=== PATIENT | female | born 1930 | race Caucasian/White ===

== ENCOUNTER 2016-12-26 21:28 | Observation (INO) | payer OTHER ==
--- NOTE | 2016-12-26 21:36 | PDOC ---
History of Present Illness - General History Source: Patient, Old Records Exam Limitations: No Limitations - History of Present Illness Initial Comments: The patient is a 86 year old female with a significant past medical history of chronic back problems, heart failure, hypothyroidism, HTN, osteoporosis, who presents to the emergency department today for further evaluation of shortness of breath for 8 hours. The patient states that she had pneumonia in the winter of 2014 and that her symptoms feel similar. She reports associated fever, constipation, and difficulty seeing straight but denies cough. She states that she did not attempt to treat symptoms at home. She denies ever having had an ND. PAST MEDICAL HISTORY: Chronic back problems, heart failure, hypothyroidism, HTN , osteoporosis PAST SURGICAL HISTORY: No significant history reported FAMILY HISTORY: No pertinent history reported SOCIAL HISTORY: Former smoker (quit 1975) MEDICATIONS: Reviewed ALLERGIES: Antibiotic cream <Boo Rodgers - Last Filed: 12/26/16 21:50> - General History Source: Patient, Family Exam Limitations: No Limitations - History of Present Illness Initial Comments: 12/26/16 22:41 A portion of this note was documented by scribe services under my direction. I have reviewed the details of the note, within reason, and agree with the documentation. The case summary and management plan written by me. Assessment and plan: This is an 86-year-old female who comes in complaining of fever and not feeling well. Patient thought she had pneumonia however as it turns out patient has a urinary tract infection. Patient has an elevated white count with left shift. And low-grade fever here in the emergency room.. Patient was given a gram of ceftriaxone Patient admitted to an inpatient bed for additional treatment and IV antibiotics. <Aziza Osborne I - Last Filed: 12/26/16 23:17> - General Chief Complaint: Shortness of Breath Stated Complaint: I THINK I HAVE PNEUMONIA Time Seen by Provider: 12/26/16 21:34 Past History <Boo Rodgers - Last Filed: 12/26/16 21:50> - Past Medical History Disorders: Yes (INCONTINENCE) HTN: Yes Thyroid Disease: Yes (HYPOTHYROID) - Psycho/Social/Smoking Cessation Hx Anxiety: No Suicidal Ideation: No Smoking Status: No Smoking History: Never smoked Have you smoked in the past 12 months: No Number of Cigarettes Smoked Daily: 0 If you are a former smoker, when did you quit?: 1975 Hx Alcohol Use: No Drug/Substance Use Hx: No Substance Use Type: None <Aziza Osborne I - Last Filed: 12/26/16 23:17> - Past Medical History Allergies/Adverse Reactions: Allergies Allergy/AdvReac Type Severity Reaction Status Date / Time No Known Drug Allergies Allergy Verified 12/26/16 22:46 ANTIBIOTIC CREAM Allergy Uncoded 02/04/16 17:37 Home Medications: Ambulatory Orders Aspirin [ASA -] 81 mg PO DAILY 12/26/16 Atorvastatin Ca [Lipitor] 10 mg PO HS 12/26/16 Cetirizine HCl [Zyrtec -] 20 mg PO HS 12/26/16 Cyclosporine [Restasis] 1 each OP BID 12/26/16 Levothyroxine Sodium [Synthroid] 100 mcg PO DAILY 12/26/16 Trospium Chloride [Trospium Chloride ER] 20 mg PO BID 12/26/16 Valsartan 40 mg PO DAILY 12/26/16 Review of Systems - Review of Systems Able to Perform ROS?: Yes Comments:: General: (+) Fevers. No chills, no weakness, no weight loss HEENT: (+) Difficulty seeing straight. No sore throat, No ear pain CardioVascular: (+) shortness of breath. No chest pain Respiratory:No cough, or wheezing. Gastrointestinal: no nausea, vomiting, diarrhea or constipation, No rectal bleeding Genitourinary: No dysuria, hematuria, or frequency Musculoskeletal: No joint or muscle pain or swelling Neurologic: No headache, vertigo, dizziness or loss of consciousness Psychiatric: nor depression Skin: No rashes or easy bruising Endocrine: no increased thirst or abnormal weight change Allergic: no skin or latex allergy All other systems reviewed and normal <Boo Rodgers - Last Filed: 12/26/16 21:50> *Physical Exam - Physical Exam Comments: General: Well-nourished well-developed individual, no acute distress HEENT: Throat: Normal, tonsils normal, no erythema or exudate Neck: Supple, no meningeal signs, no lymphadenopathy Eyes::Pupils equal reactive and round, extraocular motion intact Chest: Nontender to palpation Cardiac: S1-S2 normal, regular rate and rhythm, no murmurs rubs or gallops Respiratory: Lungs clear to auscultation bilateral Abdomen: Soft, nondistended, normal bowel sounds, nontender to palpation diffusely Extremities: Warm, dry, no cyanosis, clubbing, or edema Skin: No rashes Neuro: Alert and oriented x3, nonfocal exam, grossly intact, normal gait Psych: Normal mood and affect <Boo Rodgers - Last Filed: 12/26/16 21:50> Heart Score/ECG Review - ECG Impressions Comment:: Normal sinus rhythm. Low voltage QRS. Borderline ECG <Boo Rodgers - Last Filed: 12/26/16 21:50> ED Treatment Course - LABORATORY CBC & Chemistry Diagram: 12/26/16 22:10 12/26/16 22:10 <Aziza Osborne I - Last Filed: 12/26/16 23:17> *DC/Admit/Observation/Transfer - Attestations Scribe Attestion: Documentation prepared by Boo Rodgers, acting as medical biller coder for Aziza Osborne MD. <Boo Rodgers - Last Filed: 12/26/16 21:50> - Discharge Dispostion Admit: Yes <Aziza Osborne I - Last Filed: 12/26/16 23:17> Diagnosis at time of Disposition: Cystitis - Discharge Dispostion Condition at time of disposition: Stable
[2016-12-26 22:20] LABS: URINE APPEARANCE Cloudy; URINE BILIRUBIN 1+ (NEGATIVE); URINE BLOOD Trace-intact (NEGATIVE); URINE GLUCOSE (UA) Negative (NEGATIVE); URINE KETONE Negative (NEGATIVE); URINE NITRITE Negative (NEGATIVE); URINE PROTEIN Trace (NEGATIVE); URINE UROBILINOGEN 0.2 E.U/dl (0.2-1.0)
[2016-12-26 22:23] LABS: MCH 31.1 pg (25.7-33.7); MEAN CELL VOLUME 91.5 fl (80-96); MEAN PLT VOLUME 8.2 fl (7.5-11.1); PLATELET COUNT 216 K/MM3 (134-434); RDW 12.3 % (11.6-15.6); WHITE BLOOD COUNT 16.3 K/mm3 (4.0-10.8)
[2016-12-26 22:30] LABS: URINE COLOR YELLOW; URINE LEUK ESTERASE 3+ (NEGATIVE); URINE WBC 20-30 (3-5)
[2016-12-26 22:31] LABS: URINE BACTERIA FEW /hpf (NEGATIVE)
[2016-12-26] MEDS ORDERED: CEFTRIAXONE 1 GM in DEXTROSE 5%-WATER - 50 ML IVPB ONE (22:35)
[2016-12-26] MEDS ORDERED: cefTRIAXone SODIUM 1 GM VIAL ONE (22:38)
[2016-12-26 22:52] LABS: TROPONIN I (DFP) < 0.03 ng/ml (0.03-0.50)
[2016-12-26 22:59] LABS: PLATELET ESTIMATE ADEQUATE (NORMAL)
[2016-12-26 23:04] LABS: ALBUMIN 3.5 g/dl (3.5-5.0); ALK PHOS 167 U/L (32-92); ANION GAP 9 (8-16); BILIRUBIN,TOTAL 0.9 mg/dl (0.2-1.0); CALCIUM 8.7 mg/dl (8.4-10.2); CO2 25 mmol/L (22-28); CREATININE 0.8 mg/dl (0.6-1.3); GLUCOSE,RANDOM 178 mg/dl (74-106); TOT PROT 6.1 g/dl (6.4-8.3)
[2016-12-26 23:05] LABS: CPK(DFH) 72 IU/L (26-140)
--- NOTE | 2016-12-26 23:25 | HP ---
CHIEF COMPLAINT: SOB, Fever, Constipation PCP: Doctor not on staff HISTORY OF PRESENT ILLNESS: This is a 86 y/o woman with a past medical history Hypertension, Hypothyroidism , OA, Urinary Incontinence. Who present to the emergency department with SOB x today, fever and constipation. Patient reports having a small BM today after self dis-impaction. Patient reports having RMQ pain intermittently for a while. Patient denies chills, cough, CP, N/V/D. ER course was notable for: (1) WBC 16.3 (2) Transaminitis > 10xNL (3) UA- +3 leukocyte esterase, 20-30 WBCs Recent Travel: None PAST MEDICAL HISTORY: See HPI PAST SURGICAL HISTORY: See HPI Social History: Smoking: Never Alcohol: Occasionally Drugs: None Lives at home with spouse, independent Family History: Non- Contributory Allergies No Known Drug Allergies Allergy (Verified 12/26/16 22:46) ANTIBIOTIC CREAM Allergy (Uncoded 02/04/16 17:37) HOME MEDICATIONS: Home Medications Medication Instructions Recorded Aspirin [ASA -] 81 mg PO DAILY 12/26/16 Atorvastatin Ca [Lipitor] 10 mg PO HS 12/26/16 Cetirizine HCl [Zyrtec -] 20 mg PO HS 12/26/16 Cyclosporine [Restasis] 1 each OP BID 12/26/16 Levothyroxine Sodium [Synthroid] 100 mcg PO DAILY 12/26/16 Trospium Chloride [Trospium 20 mg PO BID 12/26/16 Chloride ER] Valsartan 40 mg PO DAILY 12/26/16 REVIEW OF SYSTEMS CONSTITUTIONAL: fever Absent: chills, diaphoresis, generalized weakness, malaise, loss of appetite, weight change HEENT: Absent: rhinorrhea, nasal congestion, throat pain, throat swelling, difficulty swallowing, mouth swelling, ear pain, eye pain, visual changes CARDIOVASCULAR: Absent: chest pain, syncope, palpitations, irregular heart rate, lightheadedness , peripheral edema RESPIRATORY: shortness of breath Absent: cough, dyspnea with exertion, orthopnea, wheezing, stridor, hemoptysis GASTROINTESTINAL: RMQ pain, constipation Absent: abdominal distension, nausea, vomiting, diarrhea, melena, hematochezia GENITOURINARY: Absent: dysuria, frequency, urgency, hesitancy, hematuria, flank pain, genital pain MUSCULOSKELETAL: arthralgia Absent: myalgia, joint swelling, back pain, neck pain SKIN: Absent: rash, itching, pallor HEMATOLOGIC/IMMUNOLOGIC: Absent: easy bleeding, easy bruising, lymphadenopathy, frequent infections ENDOCRINE: Absent: unexplained weight gain, unexplained weight loss, heat intolerance, cold intolerance NEUROLOGIC: Absent: headache, focal weakness or paresthesias, dizziness, unsteady gait, seizure, mental status changes, bladder or bowel incontinence PSYCHIATRIC: Absent: anxiety, depression, suicidal or homicidal ideation, hallucinations. PHYSICAL EXAMINATION Vital Signs - 24 hr 12/26/16 22:20 Temperature 99.7 F H Pulse Rate 86 Respiratory 18 Rate Blood Pressure 153/89 O2 Sat by Pulse 97 Oximetry (%) GENERAL: Awake, alert, and oriented x2, in no acute distress. HEAD: Normal with no signs of trauma. EYES: Pupils equal, round and reactive to light, extraocular movements intact, sclera anicteric, conjunctiva clear. No lid lag. EARS, NOSE, THROAT: Ears normal, nares patent, oropharynx clear without exudates. Moist mucous membranes. NECK: Normal range of motion, supple without lymphadenopathy, JVD, or masses. LUNGS: Breath sounds equal, clear to auscultation bilaterally. No wheezes, and no crackles. No accessory muscle use. HEART: Regular rate and rhythm, normal S1 and S2 without murmur, rub or gallop. ABDOMEN: Soft, nontender, not distended, normoactive bowel sounds, no guarding, no rebound, no masses. No hepatomegaly or splenomegaly. MUSCULOSKELETAL: Normal range of motion at all joints. No bony deformities or tenderness. No CVA tenderness. UPPER EXTREMITIES: 2+ pulses, warm, well-perfused. No cyanosis. No clubbing. No peripheral edema. LOWER EXTREMITIES: 2+ pulses, warm, well-perfused. No calf tenderness. No peripheral edema. NEUROLOGICAL: Cranial nerves II-XII intact. Normal speech. Gait not observed. PSYCHIATRIC: Cooperative. Good eye contact. Appropriate mood and affect. SKIN: Warm, dry, normal turgor, no rashes or lesions noted, normal capillary refill. Laboratory Results - last 24 hr 12/26/16 12/26/16 12/26/16 22:10 22:10 22:10 WBC 16.3 H D RBC 4.05 Hgb 12.6 Hct 37.0 MCV 91.5 MCHC 34.0 RDW 12.3 Plt Count 216 MPV 8.2 Neutrophils % 91.0 H D Lymphocytes % 3.0 L D Band Neutrophils 2.0 Myelocytes 1 Differential Comment Few large plts Platelet Estimate Adequate Sodium 134 L Potassium 3.9 Chloride 100 Carbon Dioxide 25 Anion Gap 9 BUN 15 D Creatinine 0.8 Creat Clearance w eGFR > 60 Random Glucose 178 H D Calcium 8.7 Total Bilirubin 0.9 D Alkaline Phosphatase 167 H D Creatine Kinase Troponin I Total Protein 6.1 L Albumin 3.5 Urine Color Yellow Urine Appearance Cloudy Urine pH 7.0 Ur Specific [place] 1.015 Urine Protein Trace Urine Glucose (UA) Negative Urine Ketones Negative Urine Blood Trace-intact Urine Nitrite Negative Urine Bilirubin 1+ H Urine Urobilinogen 0.2 e.u/dl Ur Leukocyte Esterase 3+ H Urine RBC 2-4 Urine WBC 20-30 Ur Epithelial Cells Moderate Urine Bacteria Few 12/26/16 22:10 WBC RBC Hgb Hct MCV MCHC RDW Plt Count MPV Neutrophils % Lymphocytes % Band Neutrophils Myelocytes Differential Comment Platelet Estimate Sodium Potassium Chloride Carbon Dioxide Anion Gap BUN Creatinine Creat Clearance w eGFR Random Glucose Calcium Total Bilirubin Alkaline Phosphatase Creatine Kinase 72 Troponin I < 0.03 L Total Protein Albumin Urine Color Urine Appearance Urine pH Ur Specific [place] Urine Protein Urine Glucose (UA) Urine Ketones Urine Blood Urine Nitrite Urine Bilirubin Urine Urobilinogen Ur Leukocyte Esterase Urine RBC Urine WBC Ur Epithelial Cells Urine Bacteria ASSESSMENT/PLAN: This is a 86 y/o woman with a PMHx of: HTN, Hypothyroid, OA, HF, Ocular Myasthania, Urinary Incontinence. Placed on Observation for UTI, Acute Transaminitis for further evaluation of their emergent condition. Plan: 1. UTI - Likely secondary to urinary incontinence - UA showed +3 leukocyte esterase, 20-30 WBCs - Urine Culture-pending - Will treat with broad spectrum ABX, will adjust pendng UC report - Started on Ceftriaxone in ED, will continue - Monitor CBC - Monitor vitals 2. Acute Transaminitis - Medication vs Hepatitis - Appreciate GI Consult - Hepatitis Panel in am - Liver US in am - Monitor BMP 3. HTN - Borderline - Monitor BP - Hold Valsartan secondary to Transaminitis - Consider BB - Monitor renal function 4. Hypothyroid - TSH in am - Continue levothyroxine 5. Heart Failure - BNP 612 - Chest Xray- no acute pathology - EKG- reviewed - Cardiac Enzyme- neg x1 6. FEN - Tolerates PO fluids - Replete lytes prn - Low Na Diet DVT Prophylaxis - OOB - SCDs - Consider AC if LOS > 48 hrs Code Status: Full Code Problem List - Problem (1) Cystitis Code(s): N30.90 - CYSTITIS, UNSPECIFIED WITHOUT HEMATURIA (2) Transaminitis Code(s): R74.0 - NONSPEC ELEV OF LEVELS OF TRANSAMNS & LACTIC ACID DEHYDRGNSE (3) Arthritis Code(s): M19.90 - UNSPECIFIED OSTEOARTHRITIS, UNSPECIFIED SITE (4) DVT prophylaxis Code(s): RSS0811 - Visit type - Emergency Visit Emergency Visit: Yes ED Registration Date: 12/26/16 Care time: The patient presented to the Emergency Department on the above date and was hospitalized for further evaluation of their emergent condition. - New Patient This patient is new to me today: Yes Date on this admission: 12/26/16 - Critical Care Critical Care patient: No
[2016-12-26 23:36] LABS: SGOT/AST 546 U/L (10-42); SGPT/ALT 393 U/L (10-40)
[2016-12-27 01:16] VITALS: BMI 24.3
[2016-12-27] MEDS: LEVOTHYROXINE NA 100 MCG TABLET (FP) PO SCH (06:26)
[2016-12-27 08:12] LABS: BASOPHIL 0.1 % (0-2.0); EOSINOPHIL 0.1 % (0-4.5); MCH 31.5 pg (25.7-33.7); MEAN CELL VOLUME 92.7 fl (80-96); MEAN PLT VOLUME 8.4 fl (7.5-11.1); NEUTROPHILS 87.1 % (42.8-82.8); PLATELET COUNT 193 K/MM3 (134-434); RDW 12.8 % (11.6-15.6); WHITE BLOOD COUNT 14.8 K/mm3 (4.0-10.8)
[2016-12-27 08:24] LABS: ANION GAP 6 (8-16); CO2 26 mmol/L (22-28); CREATININE 0.8 mg/dl (0.6-1.3); GLUCOSE,RANDOM 112 mg/dl (74-106)
[2016-12-27 08:55] LABS: CALCIUM 8.4 mg/dl (8.4-10.2)
[2016-12-27 09:35] LABS: BILIRUBIN,DIRECT 0.2 mg/dl (0.0-0.2); BILIRUBIN,TOTAL 0.7 mg/dl (0.2-1.0); TOT PROT 5.4 g/dl (6.4-8.3)
[2016-12-27] MEDS ORDERED: VALSARTAN 40 MG TABLET (FP) PO SCH (10:00)
[2016-12-27] MEDS ORDERED: CEFTRIAXONE 1 GM in DEXTROSE 5%-WATER - 50 ML IVPB SCH (10:00)
[2016-12-27] MEDS ORDERED: ASPIRIN 81 MG CHEWABLE TABLETS PO SCH (10:00)
[2016-12-27] MEDS ORDERED: cefTRIAXone 1 GM/50 ML BAG (PRE-DOCKED) IVPB SCH (10:00)
--- NOTE | 2016-12-27 10:04 | PN ---
[id number]. patient denies any shortness of breath, ambulatory at bedside with a cane, denies any dyspnea upon exertion. OBJECTIVE: he patient is a 86 year old female with a significant past medical history of chronic back problems, hypothyroidism, HTN, osteoporosis. patient was admitted from the emergency department for urinary tract infection and was noted to have transanimitis. Vital Signs Period Temp Pulse Resp BP Sys/Rosas Pulse Ox Last 24 Hr 98.7 F-99.0 F 82-90 18-19 101-152/55-81 96-99 GENERAL: The patient is awake, alert, and fully oriented, in no acute distress. HEAD: Normal with no signs of trauma. EYES: PERRL, extraocular movements intact, sclera icteric, conjunctiva clear. No ptosis. ENT: Ears normal, nares patent, oropharynx clear without exudates, moist mucous membranes. NECK: Trachea midline, full range of motion, supple. LUNGS: Breath sounds equal, clear to auscultation bilaterally, no wheezes, no crackles, no accessory muscle use. HEART: Regular rate and rhythm, S1, S2 without murmur, rub or gallop. ABDOMEN: Soft, nontender, nondistended, slight right upper quadrant tenderness upon palpation. normoactive bowel sounds, no guarding, no rebound, no hepatosplenomegaly, no masses. EXTREMITIES: 2+ pulses, warm, well-perfused, no edema. NEUROLOGICAL: Cranial nerves II through XII grossly intact. Normal speech, ambulated with a cane. PSYCH: Normal mood, normal affect. SKIN: Warm, dry, normal turgor, no rashes or lesions noted Laboratory Results - last 24 hr 12/27/16 12/27/16 12/27/16 07:15 07:15 Unknown WBC 14.8 H RBC 3.74 Hgb 11.8 Hct 34.7 MCV 92.7 MCHC 34.0 RDW 12.8 Plt Count 193 MPV 8.4 Neutrophils % 87.1 H Lymphocytes % 8.3 D Monocytes % 4.4 Eosinophils % 0.1 D Basophils % 0.1 Sodium 136 Potassium 3.6 Chloride 104 Carbon Dioxide 26 Anion Gap 6 L BUN 12 Creatinine 0.8 Random Glucose 112 H D Calcium 8.4 Total Bilirubin 0.7 D Direct Bilirubin 0.2 AST 246 H D ALT 263 H D Alkaline Phosphatase 132 H D Total Protein 5.4 L Albumin 3.0 L Active Medications Generic Name Dose Route Start Last Admin Trade Name Mirta PRN Reason Stop Dose Admin Aspirin 81 mg 12/27/16 10:00 Asa - PO DAILY LYDIA Ceftriaxone Sodium 1 gm 12/27/16 10:00 Rocephin 1gm Ivpb (Pre-Docked) IVPB DAILY LYDIA Levothyroxine Sodium 100 mcg 12/27/16 07:00 12/27/16 06:26 Synthroid - PO 100 mcg DAILY@0700 LYDIA Administration IMAGING ultrasound of abd: multiple gallstones w/thickening of the gallbladder wall, no pericholecystic free fluid. ASSESSMENT/PLAN: 1 GI: transanimitis noted, LFTs are trending downward, pending amylase/lipase pt reports on episode of vomitng yesterday with episgastric pain, ultrasound reviewed, pt made NPO, will order MRCP on rocephin for uti, will add flagyl appreciate input from GI and surgery 2. card hypertension continue valsartan, strict b/p monitoring pt elevated bnp unknown baseline, pt appears euvolemic on exam. case discussed with Dr Remberto Upton (PCP) , pt has a history of CHF, pt has history of diastolic dysfunction troponin x 3 wnl 3) endo hypothyroidism continue levothyroxine home dose, pending tsh. 4) gu uti - pending urine culture continue rocephin - wbc trending downward, pt afebrile F/E/N - npo - replete lytes prn ppx oob scd zantac dispo: requires observation Code Status: Full Code Visit type - Emergency Visit Emergency Visit: Yes ED Registration Date: 12/26/16 Care time: The patient presented to the Emergency Department on the above date and was hospitalized for further evaluation of their emergent condition. - New Patient This patient is new to me today: Yes Date on this admission: 12/27/16 - Critical Care Critical Care patient: No - Discharge Referral Referred to [facility] Med P.C.: No
[2016-12-27 10:05] LABS: CPK(DFH) 83 IU/L (26-140)
[2016-12-27 10:28] LABS: TROPONIN I (DFP) < 0.03 ng/ml (0.03-0.50)
[2016-12-27] MEDS ORDERED: LACTOBACILLUS ACIDOPHILUS 1 EACH TAB (FP) PO SCH (10:30)
[2016-12-27] MEDS: METRONIDAZOLE 500 MG PREMIXED 100 ML IVPB SCH ×2 (10:38→18:46)
[2016-12-27] MEDS ORDERED: RANITIDINE HCL 150 MG TABLET (FP) PO SCH (11:15)
--- NOTE | 2016-12-27 11:48 | CONSULT ---
- Consultation REQUESTING PROVIDER: Dr. Padron CONSULT REQUEST: We have been asked to surgically evaluate this patient for gallstone disease. PCP:Yana Villareal HISTORY OF PRESENT ILLNESS: The patient is a 86 yo female who presented to the ER for upper abd/chest pressure associated with nausea, no emesis but bad tast in her mouth. She denies any upper abd burning sensation. Occasional SOB. She had a similar episode last week which resolved by itself. Currently she is non- tender. No dysuria, hematuria, or foul odor to her urine. The patient suffers from constipation and had a bowel movement yesterday after self fecal disimpaction. The patient wasn't aware of having gallstones and wants her PMD regarding possible lap juan antonio. Also she is very physically active and swims 1/2 mile 3 times per week. With physical acitivity she denies any CP/SOB. 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 urinary incontinence, constipation. PSHx: b/l cataract surgery, left foot surgery for mass(benign) Home Medications Medication Instructions Recorded Aspirin [ASA -] 81 mg PO DAILY 12/26/16 Atorvastatin Ca [Lipitor] 10 mg PO HS 12/26/16 Cetirizine HCl [Zyrtec -] 20 mg PO HS 12/26/16 Cyclosporine [Restasis] 1 each OP BID 12/26/16 Levothyroxine Sodium [Synthroid] 100 mcg PO DAILY 12/26/16 Trospium Chloride [Trospium 20 mg PO BID 12/26/16 Chloride ER] Valsartan 40 mg PO DAILY 12/26/16 Docusate Sodium [Colace -] 300 mg PO 12/27/16 Allergies Allergy/AdvReac Type Severity Reaction Status Date / Time No Known Drug Allergies Allergy Verified 12/26/16 22:46 ANTIBIOTIC CREAM Allergy Uncoded 02/04/16 17:37 REVIEW OF SYSTEMS: CONSTITUTIONAL: Absent: fever, chills CARDIOVASCULAR: Absent: chest pain, syncope, palpitations, irregular heart rate, peripheral edema RESPIRATORY: Absent: shortness of breath, dyspnea with exertion Present: Occasional SOB GASTROINTESTINAL: Present: constipation, abdominal pressure GENITOURINARY: Absent: dysuria, hematuria MUSCULOSKELETAL: Present: back pain, b/l knee pain(DJD) HEMATOLOGIC/IMMUNOLOGIC: Absent: easy bleeding, easy bruising NEUROLOGIC: Absent: headache, dizziness PSYCHIATRIC: Absent: anxiety, depression, suicidal or homicidal ideation, hallucinations. PHYSICAL EXAM: GENERAL: Awake, alert, and fully oriented, in no acute distress. HEAD: Normal with no signs of trauma. EYES: sclera anicteric, conjunctiva clear. NECK: Normal ROM, supple without lymphadenopathy. No carotid bruits b/l. LUNGS: Clear to auscultation bilat anteriorly. No wheezes, and no crackles. No accessory muscle use. HEART: Regular rate and rhythm. No murmurs ABDOMEN: Soft, nontender, not distended, normoactive bowel sounds, no guarding, no rebound, no masses. MUSCULOSKELETAL: Normal ROM at all joints. No bony deformities. UPPER EXTREMITIES: 2+ pulses, warm, well-perfused. No cyanosis. Cap refill <2 seconds. No peripheral edema. LOWER EXTREMITIES: 2+ pulses, warm, well-perfused. No calf tenderness. No peripheral edema. NEUROLOGICAL: Normal speech, gait not observed. PSYCH: Cooperative. Good eye contact. Appropriate mood and affect. SKIN: Warm, dry, normal turgor, no rashes or lesions noted. Vital Signs Temperature 99.0 F 12/27/16 06:00 Pulse Rate 86 12/27/16 06:00 Respiratory Rate 19 12/27/16 06:00 Blood Pressure 101/55 12/27/16 06:00 O2 Sat by Pulse Oximetry (%) 98 12/27/16 09:54 Lab Results WBC 14.8 K/mm3 (4.0-10.8) H 12/27/16 07:15 RBC 3.74 M/mm3 (3.60-5.2) 12/27/16 07:15 Hgb 11.8 GM/dl (10.7-15.3) 12/27/16 07:15 Hct 34.7 % (32.4-45.2) 12/27/16 07:15 MCV 92.7 fl (80-96) 12/27/16 07:15 MCHC 34.0 g/dl (32.0-36.0) 12/27/16 07:15 RDW 12.8 % (11.6-15.6) 12/27/16 07:15 Plt Count 193 K/MM3 (134-434) 12/27/16 07:15 Sodium 136 mmol/L (136-145) 12/27/16 07:15 Potassium 3.6 mmol/L (3.5-5.1) 12/27/16 07:15 Chloride 104 mmol/L (98-107) 12/27/16 07:15 Carbon Dioxide 26 mmol/L (22-28) 12/27/16 07:15 Anion Gap 6 (8-16) L 12/27/16 07:15 BUN 12 mg/dl (7-18) 12/27/16 07:15 Creatinine 0.8 mg/dl (0.6-1.3) 12/27/16 07:15 Random Glucose 112 mg/dl (74-106) H D 12/27/16 07:15 Calcium 8.4 mg/dl (8.4-10.2) 12/27/16 07:15 Laboratory Tests 12/26/16 12/26/16 12/27/16 22:10 22:10 07:15 AST 546 H D ALT 393 H D Alkaline Phosphatase 167 H D Troponin I < 0.03 L < 0.03 L Laboratory Tests 12/26/16 12/27/16 22:10 07:15 Urine Color Yellow Urine Appearance Cloudy Urine pH 7.0 Ur Specific [place] 1.015 Urine Protein Trace Urine Glucose (UA) Negative Urine Ketones Negative Urine Blood Trace-intact Urine Nitrite Negative Urine Bilirubin 1+ H Urine Urobilinogen 0.2 e.u/dl Ur Leukocyte Esterase 3+ H Urine RBC 2-4 Urine WBC 20-30 Ur Epithelial Cells Moderate Urine Bacteria Few Hepatitis A Ab Total Pending Hep Bs Antigen Pending Hep Bs Antibody Pending Hep B Core Total Ab Pending US-gallstones, GB wall thickening, no pericholecystic fluid CXR: FAUZIA A/P: 86 yo female with Gall stones, transaminitis and UTI D/w covering medical team, Yana Villareal NP. Pt to remain npo and MRCP ordered, added lipase/amylase. Urine culture added also Plan for MRCP D/w Dr. Padron and will follow the patient as a consult Hepatitis Panl pending. Visit type - Case Type Case Type: ED Admission - Emergency Emergency Visit: Yes ED Registration Date: 12/26/16 Care time: The patient presented to the Emergency Department on the above date and was hospitalized for further evaluation of their emergent condition. - New patient This patient is new to me today: Yes Date on this admission: 12/27/16 - Critical Care Critical Care patient: No
--- NOTE | 2016-12-27 15:08 | EKG ---
Test Reason : Blood Pressure : / mmHG Vent. Rate : 078 BPM Atrial Rate : 078 BPM P-R Int : 188 ms QRS Dur : 098 ms QT Int : 390 ms P-R-T Axes : 059 -03 040 degrees QTc Int : 444 ms NORMAL SINUS RHYTHM LOW VOLTAGE QRS NO PREVIOUS ECGS AVAILABLE Confirmed by MD MANDY, REY ([id number]) on 12/27/2016 3:07:51 PM Referred By: DR PITTMAN Confirmed By:REY GALVAN MD
[2016-12-27 16:29] LABS: CPK(DFH) 85 IU/L (26-140)
[2016-12-27 17:00] LABS: TROPONIN I (DFP) < 0.03 ng/ml (0.03-0.50)
--- NOTE | 2016-12-27 21:00 | PN ---
Progress Note (short form) - Note Progress Note: Attending Surgeon Patient sen and evaluated; concur w/a/p as outlined by HAYLEY Shrestha; case d/w patient and her daughter Yael Dick MD; she will be transferred to [place] for continuing care. Taye Padron MD FACS
[2016-12-27] MEDS ORDERED: ATORVASTATIN CA 10 MG TABLET (FP) PO SCH (22:00)
[2016-12-27 22:45] VITALS: TEMP 98.1
[2016-12-28] MEDS: METRONIDAZOLE 500 MG PREMIXED 100 ML IVPB SCH (02:06)
[2016-12-28 06:31] VITALS: BP 120/70; PULSE 75
[2016-12-28] MEDS: LEVOTHYROXINE NA 100 MCG TABLET (FP) PO SCH (06:32)
[2016-12-28 08:26] LABS: BASOPHIL 0.3 % (0-2.0); EOSINOPHIL 1.4 % (0-4.5); MCH 31.6 pg (25.7-33.7); MCHC 34.2 g/dl (32.0-36.0); MEAN CELL VOLUME 92.4 fl (80-96); MEAN PLT VOLUME 8.3 fl (7.5-11.1); NEUTROPHILS 81.1 % (42.8-82.8); PLATELET COUNT 202 K/MM3 (134-434); RDW 12.7 % (11.6-15.6); WHITE BLOOD COUNT 9.2 K/mm3 (4.0-10.8)
--- NOTE | 2016-12-28 08:36 | DS ---
Physical Exam: SUBJECTIVE: Patient seen and examined, reports feeling well, denies any abdominal pain, nausea or vomiting. OBJECTIVE: patient is a 86 y/o woman with a past medical history diastolic dysfunction, Hypertension, Hypothyroidism, OA, Urinary Incontinence. Patient presented to the emergency department after one episode of shortness of breath, nausea and vomiting. In addition, patient also reports a stabbing sensation to the right upper abdomen radiating to the pain. She reports the pain is intermittent and resolves spontaneously. As a result she sought evaluation in the emergency department. ER course was notable for: (1) WBC 16.3 (2) Transaminitis > 10xNL (3) UA- +3 leukocyte esterase, 20-30 WBCs Vital Signs Period Temp Pulse Resp BP Sys/Rosas Pulse Ox Last 24 Hr 98.1 F-98.2 F 70-77 16-20 103-120/57-70 95-100 PHYSICAL EXAM GENERAL: The patient is awake, alert, and fully oriented, in no acute distress. HEAD: Normal with no signs of trauma. EYES: PERRL, extraocular movements intact, sclera icteric, conjunctiva clear. No ptosis. ENT: Ears normal, nares patent, oropharynx clear without exudates, moist mucous membranes. NECK: Trachea midline, full range of motion, supple. LUNGS: Breath sounds equal, clear to auscultation bilaterally, no wheezes, no crackles, no accessory muscle use. HEART: Regular rate and rhythm, S1, S2 without murmur, rub or gallop. ABDOMEN: Soft, nontender, nondistended, slight right upper quadrant tenderness upon palpation. normoactive bowel sounds, no guarding, no rebound, no hepatosplenomegaly, no masses. EXTREMITIES: 2+ pulses, warm, well-perfused, no edema. NEUROLOGICAL: Cranial nerves II through XII grossly intact. Normal speech, ambulated with a cane. PSYCH: Normal mood, normal affect. SKIN: Warm, dry, normal turgor, no rashes or lesions noted LABS Laboratory Results - last 24 hr 12/27/16 12/27/16 12/27/16 07:15 07:15 07:15 Sodium 136 Potassium 3.6 Chloride 104 Carbon Dioxide 26 Anion Gap 6 L BUN 12 Creatinine 0.8 Random Glucose 112 H D Calcium 8.4 Total Bilirubin Direct Bilirubin AST ALT Alkaline Phosphatase Creatine Kinase 83 Troponin I < 0.03 L Total Protein Albumin Total Amylase Lipase TSH 0.66 12/27/16 12/27/16 12/27/16 15:40 15:40 15:40 Sodium Potassium Chloride Carbon Dioxide Anion Gap BUN Creatinine Random Glucose Calcium Total Bilirubin Direct Bilirubin AST ALT Alkaline Phosphatase Creatine Kinase 85 Troponin I < 0.03 L Total Protein Albumin Total Amylase 145 H Lipase 580 H TSH 12/27/16 Unknown Sodium Potassium Chloride Carbon Dioxide Anion Gap BUN Creatinine Random Glucose Calcium Total Bilirubin 0.7 D Direct Bilirubin 0.2 AST 246 H D ALT 263 H D Alkaline Phosphatase 132 H D Creatine Kinase Troponin I Total Protein 5.4 L Albumin 3.0 L Total Amylase Lipase TSH IMAGING ultrasound of abd: multiple gallstones w/thickening of the gallbladder wall, no pericholecystic free fluid. MRCP of abd: cholelithasis without cholecystitis, choledocholithasis with minimal CBD dilation with significant periportal edema, peripancreatic edema suggestive of pancreatitis. as per radiologist Dr Bello. HOSPITAL COURSE: Patient was admitted from the emergency department. Upon admission, transanimitis with leukocytosis was noted. Patient's physical exam and history was suggestive of cholecystis with a high concern for a retained gallstone. Patient was placed on IV rocephin and flagy. Ultrsound was noted to have multiple gallstones and MRCP was completed which resulted as choledocholithasis and pancreatitis. Upon review of diagnostics with general surgeon, Dr Padron, patient will require an ERCP. These findings were discussed with patient and her daughter. Both patient and daughter requested transfer to [facility] for further management. In addition, patient has a past medical history of hypertension. Valsartan was continued throughout hospitalization and b/p remained at goal. Patient does have a elevated bnp with unknown baseline, pt appears euvolemic on exam. Troponin x 3 WNL. Moreover, it was noted, patient had + leukocytes in urine and is pending urine culture. Patient is asymptomatic, however, she was given rocephin for empiric coverage. Case discussed with Dr Remberto Upton (PCP) and will be accepting physician at [facility]. PLAN: -transfer to [facility] for gallstone pancreatitis and choledocholitiasis for ERCP and further management Date of Admission:12/26/16 Date of Discharge: 12/28/16 Minutes to complete discharge: 45 Discharge Summary Reason For Visit: I THINK I HAVE PNEUMONIA Current Active Problems Arthritis (Acute) Cystitis (Acute) DVT prophylaxis (Acute) Transaminitis (Acute) Condition: Stable - Home Medications Comprehensive Discharge Medication List: Ambulatory Orders Aspirin [ASA -] 81 mg PO DAILY 12/26/16 Atorvastatin Ca [Lipitor] 10 mg PO HS 12/26/16 Cetirizine HCl [Zyrtec -] 20 mg PO HS 12/26/16 Cyclosporine [Restasis] 1 each OP BID 12/26/16 Levothyroxine Sodium [Synthroid] 100 mcg PO DAILY 12/26/16 Trospium Chloride [Trospium Chloride ER] 20 mg PO BID 12/26/16 Valsartan 40 mg PO DAILY 12/26/16 Docusate Sodium [Colace -] 300 mg PO 12/27/16 This patient is new to me today: No Emergency Visit: Yes ED Registration Date: 12/26/16 Care time: The patient presented to the Emergency Department on the above date and was hospitalized for further evaluation of their emergent condition. Critical Care patient: Yes Total Critical Care Time (in minutes): 45 Critical Care Statement: The care of this patient involved high complexity decision making to prevent further life threatening deterioration of the patient 's condition and/or to evalute & treat vital organ system(s) failure or risk of failure. - Discharge Referral Referred to [facility] No
[2016-12-28 08:44] LABS: ALK PHOS 119 U/L (32-92); ANION GAP 9 (8-16); BILIRUBIN,TOTAL 0.7 mg/dl (0.2-1.0); CALCIUM 8.4 mg/dl (8.4-10.2); CO2 23 mmol/L (22-28); CREATININE 0.8 mg/dl (0.6-1.3); GLUCOSE,RANDOM 94 mg/dl (74-106); MAGNESIUM 1.8 mg/dL (1.8-2.4); PHOSPHOROUS 2.3 mg/dl (2.5-4.6); SGOT/AST 98 U/L (10-42); SGPT/ALT 171 U/L (10-40); TOT PROT 5.6 g/dl (6.4-8.3)
[2016-12-28] MEDS ORDERED: DEXTROSE 5%-NORMAL SALINE 1,000 ML IV SCH (09:15)
[2016-12-29 00:07] LABS: HEP B SURFACE AB Non Reactive (.)
== END 2016-12-28 09:30 | disposition short-term general hospital (02) ==
LOC: FER 21:28 → FM/S 23:33
PROVIDERS: ADMIT Internal Medicine; ATTEND Nurse Practitioner Family
DX: N30.90 Cystitis, unspecified without hematuria (principal); I10 Essential (primary) hypertension; E03.9 Hypothyroidism, unspecified; M81.0 Age-related osteoporosis without current pathological fracture; R26.2 Difficulty in walking, not elsewhere classified; R32 Unspecified urinary incontinence; R74.0 Nonspecific elevation of levels of transaminase and lactic acid dehydrogenase [LDH]; I50.9 Heart failure, unspecified; M19.90 Unspecified osteoarthritis, unspecified site; K85.10 Biliary acute pancreatitis without necrosis or infection
CPT/HCPCS: 36415; 71010-TC; 74182-TC; 76705-TC; 80048; 80053; 80076; 81003; 81015; 82150; 82550; 83690; 83735; 83880; 84100; 84443; 84484; 85025; 86704; 86706; 86708; 87340; 93005; 99284-25; C1887; G0378